=== PATIENT | female | born 1980 ===

== ENCOUNTER 2017-02-25 17:40 | Inpatient (IN) | payer MEDICAID ==
[2017-02-25 17:40] VITALS: BMI 27.4
[2017-02-25 18:48] LABS: BASO # 0.1 K/uL (0.0-0.2); BASO % 0.8 % (0.0-2.0); EOS # 0.1 K/uL (0.0-0.7); EOS % 1.1 % (0.0-4.0); HEMATOCRIT 37.4 % (34.0-47.0); LYMPH # 3.2 K/uL (1.0-4.3); LYMPH % 30.1 % (20.0-40.0); MEAN CELL VOLUME 92.6 fL (81.0-99.0); MEAN CORPUSCULAR HEMOGLOBIN 31.5 pg (27.0-31.0); MEAN PLATELET VOLUME 8.6 fL (7.2-11.7); MONO # 0.7 K/uL (0.0-0.8); MONO % 6.7 % (0.0-10.0); RED CELL DISTRIBUTION WIDTH 12.7 % (11.5-14.5); WHITE BLOOD COUNT 10.7 K/uL (4.8-10.8)
[2017-02-25 19:00] LABS: CHLORIDE 99 mmol/L (98-107); POTASSIUM 3.6 mmol/L (3.6-5.2); SODIUM 137 mmol/L (132-148)
[2017-02-25 19:02] LABS: ALB/GLOB RATIO 1.2 (1.0-2.1); ALKALINE PHOSPHATASE 79 U/L (38-126); AST/SGOT 27 U/L (14-36); BILIRUBIN,TOTAL 0.5 mg/dL (0.2-1.3); CARBON DIOXIDE 24 mmol/L (22-30); GFR AFRICAN-AMERICAN > 60; TOTAL PROTEIN 7.9 g/dL (6.3-8.3)
[2017-02-25 19:03] LABS: ALT/SGPT 33 U/L (9-52); BLOOD UREA NITROGEN 15 mg/dL (7-17); GLUCOSE,RANDOM 94 mg/dL (65-105); MAGNESIUM 1.9 mg/dL (1.6-2.3)
--- NOTE | 2017-02-25 20:01 | CT ---
EXAM: CT Head Without Intravenous Contrast CLINICAL HISTORY: 36 years old, female; Pain; Headache; Headache not specified TECHNIQUE: Axial computed tomography images of the head/brain without intravenous contrast. This CT exam was performed using one or more of the following dose reduction techniques: automated exposure control, adjustment of the mA and/or kV according to patient size, and/or use of iterative reconstruction technique. EXAM DATE/TIME: 02/25/2017 6:39 PM COMPARISON: No relevant prior studies available. FINDINGS: BRAIN: No acute hemorrhage seen within the brain. No acute extraaxial fluid collections visualized. No evidence of significant intracranial mass effect. Normal ibrahim-white matter differentiation. VENTRICLES: No evidence of significant hydrocephalus. BONES/JOINTS: No acute fractures or other acute bony abnormality noted. SOFT TISSUES: No acute abnormality of the visualized soft tissues is seen. SINUSES: Visualized paranasal sinuses appear clear. MASTOID AIR CELLS: Mastoid air cells appear clear. IMPRESSION: - No acute findings seen within the brain. - See above for remaining findings.
--- NOTE | 2017-02-25 21:37 | C.PDOC ---
Time Seen by Provider: 02/25/17 18:30 Chief Complaint (Nursing): Syncope History Per: Patient Onset/Duration Of Symptoms: Days (about 1 month) Current Symptoms Are (Timing): Still Present Number Of Syncopal Episodes: 1 (today) Associated Symptoms Preceding Syncopal Episode: Lightheadedness Seizure Or Post-ictal Symptoms: None Fall Associated With With Symptoms: No Severity: Moderate Additional History Per: Prior Records - Symptoms Of CVA Recent Head Trauma: No Past Medical History Reviewed: Historical Data, Nursing Documentation, Vital Signs Vital Signs: Last Vital Signs Temp 97.4 F L 02/25/17 17:43 Pulse 84 02/25/17 17:43 Resp 20 02/25/17 17:43 BP 154/98 H 02/25/17 17:43 Pulse Ox 100 02/25/17 17:43 - Medical History PMH: Depression, Gastritis Surgical History: Appendectomy, Endoscopy Other Surgeries: Hysterectomy - [facility] Procedures OTHER AND UNSPECIFIED TOTAL ABDOMINAL HYSTERECTOMY (08/06/14) REMOV TUBE & ECTOP PREG (11/17/13) VACCINATION NEC (08/06/14) Family History: States: Unknown Family Hx - Social History Hx Tobacco Use: No Hx Alcohol Use: No Hx Substance Use: No - Immunization History Hx Tetanus Toxoid Vaccination: Yes Hx Influenza Vaccination: Yes Hx Pneumococcal Vaccination: Yes Review Of Systems Except As Marked, All Systems Reviewed And Found Negative. Constitutional: Negative for: Fever, Weakness Cardiovascular: Positive for: Chest Pain (exertional?), Light Headedness Respiratory: Negative for: Hemoptysis Gastrointestinal: Negative for: Vomiting, Abdominal Pain Musculoskeletal: Negative for: Neck Pain, Back Pain Skin: Negative for: Rash Neurological: Positive for: Headache, Dizziness. Negative for: Weakness, Numbness, Seizures, Altered Mental Status Physical Exam - Physical Exam Appears: Non-toxic, No Acute Distress Skin: Normal Color, Warm, Dry, No Rash Head: Atraumatic, Normacephalic Eye(s): bilateral: PERRL, EOMI Neck: Normal ROM, Supple Cardiovascular: Rhythm Regular Respiratory: Normal Breath Sounds, No Accessory Muscle Use Gastrointestinal/Abdominal: Soft, No Tenderness Back: No CVA Tenderness Extremity: Normal ROM, No Pedal Edema Neurological/Psych: Oriented x3, Normal Speech, Normal Cognition, Normal Motor, Normal Sensation ED Course And Treatment - Laboratory Results Result Diagrams: 02/25/17 18:43 04/01/17 18:43 Lab Interpretation: No Acute Changes ECG: Interpreted By Me, Viewed By Me ECG Rhythm: Sinus Rhythm ECG Interpretation: No Acute Changes Rate From EC O2 Sat by Pulse Oximetry: 100 Pulse Ox Interpretation: Normal - Radiology CXR: Interpreted by Me, Viewed By Me CXR Interpretation: Yes: Cardiomegaly (?) - CT Scan/US CT head Other Rad Studies (CT/US): Read By Radiologist, Radiology Report Reviewed CT/US Interpretation: IMPRESSION: - No acute findings seen within the brain. - See above for remaining findings. Disposition Discussed With : Kenya Hernandez (Covering) Comment: He accepted pt on his service and gave admitting orders to the nurse. Doctor Will See Patient In The: Hospital Counseled Patient/Family Regarding: Studies Performed, Diagnosis - Disposition Disposition: HOSPITALIZED Disposition Time: 21:40 Condition: STABLE - Clinical Impression Clinical Impression: Episode of syncope, Dizziness
--- NOTE | 2017-02-26 08:34 | RAD ---
PROCEDURE: CHEST RADIOGRAPH, 1 VIEW HISTORY: CP COMPARISON: Comparison is made to the previous study dated 12/20/2016 FINDINGS: LUNGS: No evidence of new infiltrate or consolidation in the lungs. PLEURA: No pneumothorax or pleural fluid seen. CARDIOVASCULAR: Normal. OSSEOUS STRUCTURES: No significant abnormalities. VISUALIZED UPPER ABDOMEN: Normal. OTHER FINDINGS: None. IMPRESSION: No active disease.
--- NOTE | 2017-02-26 10:44 | CP.PCM.CON ---
History of Present Illness - History of Present Illness History of Present Illness: I was asked to see patient by Dr. Hernandez. Patient is a 36 year old female with no signfiicant PMH who presents with dizziness, near syncope and palpitation. Patient has noted progressive dyspnea on exertion. She states symptoms began one month ago, and are notable for a sensation of heart racing. The patient was at work yesterday when she wsa noted to have weakness, palpitations, and syncope. The patient has dyspnea with walking a flight of stairs or one block. Review of Systems - Constitutional Constitutional: absent: As Per HPI, Anorexia, Chills, Daytime Sleepiness, Excessive Sweating, Fatigue, Fever, Frequent Falls, Headache, Increased Appetite , Lethargy, Malaise, Night Sweats, Snoring, Sleep Apnea, Weight Gain, Weight Loss, Weakness, Other - EENT Eyes: absent: As Per HPI, Blind Spots, Blurred Vision, Change in Vision, Decreased Night Vision, Diplopia, Discharge, Dry Eye, Exophthalmos, Floaters, Irritation, Itchy Eyes, Loss of Peripheral Vision, Pain, Photophobia, Requires Corrective Lenses, Sees Flashes, Spots in Vision, Tunnel Vision, Other Visual Disturbances, Loss of Vision, Other Ears: absent: As Per HPI, Decreased Hearing, Ear Discharge, Ear Pain, Tinnitus, Abnormal Hearing, Disequilibrium, Dizziness, Other Nose/Mouth/Throat: absent: As Per HPI, Epistaxis, Nasal Congestion, Nasal Discharge, Nasal Obstruction, Nasal Trauma, Nose Pain, Post Nasal Drip, Sinus Pain, Sinus Pressure, Bleeding Gums, Change in Voice, Dental Pain, Dry Mouth, Dysphagia, Halitosis, Hoarsness, Lip Swelling, Mouth Lesions, Mouth Pain, Odynophagia, Sore Throat, Throat Swelling, Tongue Swelling, Facial Pain, Neck Pain, Neck Mass, Other - Cardiovascular Cardiovascular: Dyspnea, Palpitations - Respiratory Respiratory: absent: As Per HPI, Cough, Dyspnea, Hemoptysis, Dyspnea on Exertion , Wheezing, Snoring, Stridor, Pain on Inspiration, Chest Congestion, Excessive Mucous Production, Change in Mucous Color, Pain with Coughing, Other - Gastrointestinal Gastrointestinal: absent: As Per HPI, Abdominal Pain, Belching, Bloating, Change in Bowel Habits, Change in Stool Character, Coffee Ground Emesis, Constipation, Cramping, Diarrhea, Dyspepsia, Dysphagia, Early Satiety, Excessive Flatus, Fecal Incontinence, Heartburn, Hematemesis, Hematochezia, Loose Stools, Melena, Nausea, Odynophagia, Temesmus, Vomiting, Other - Genitourinary Genitourinary: absent: As Per HPI, Change in Urinary Stream, Difficulty Urinating, Dysuria, Flank Pain, Hematuria, Pyuria, Nocturia, Urinary Incontinence, Urinary Frequency, Urinary Hesitance, Urinary Urgency, Voiding Freq/Small Amts, Freq UTI, Hx Renal/Bladder Calculi, Hx /Renal Surgery, Bladder Distension, Other - Musculoskeletal Musculoskeletal: absent: As Per HPI, Abnormal Gait, Arthralgias, Atrophy, Back Pain, Deformity, Joint Swelling, Limited Range of Motion, Loss of Height, Muscle Cramps, Muscle Weakness, Myalgias, Neck Pain, Numbness, Radiating Pain into Limb, Stiffness, Tingling, Other - Integumentary Integumentary: absent: As Per HPI, Acne, Alopecia, Bleeding Lesions, Change in Hair, Change in Nails, Change in Pigmentation, Changing Lesions, Dry Skin, Erythema, Furuncle, Hirsutism, Lesions, New Lesions, Non-Healing Lesions, Photosensitivity, Pruritus, Rash, Skin Pain, Skin Ulcer, Sores, Striae, Swelling , Unusual Bruising, Wounds, Jaundice, Other - Neurological Neurological: absent: As Per HPI, Abnormal Gait, Abnormal Hearing, Abnormal Movements, Abnormal Speech, Behavioral Changes, Burning Sensations, Confusion, Convulsions, Disequilibrium, Dizziness, Numbness, Focal Weakness, Frequent Falls , Headaches, Lack of Coordination, Loss of Vision, Memory Loss, Paresthesias, Radicular Pain, Restless Legs, Sensory Deficit, Syncope, Tingling, Tremor, Vertigo, Weakness, Other Visual Disturbances, Other - Psychiatric Psychiatric: absent: As Per HPI, Abnormal Sleep Pattern, Anhedonia, Anxiety, Auditory Hallucinations, Behavioral Changes, Change in Appetite, Change in Libido, Confusion, Depression, Difficulty Concentrating, Hallucinations, Homicidal Ideation, Hopelessness, Irritability, Memory Loss, Mood Swings, Panic Attacks, Paranoia, Suicidal Ideation, Visual Hallucinations, Tactile Hallucinations, Other - Endocrine Endocrine: absent: As Per HPI, Change in Body Appearance, Change in Libido, Cold Intolorance, Deepening of Voice, Excessive Sweating, Fatigue, Flushing, Heat Intolorance, Increase in Ring/Shoe/Hat Size, Palpitations, Polydipsia, Polyphagia, Polyuria, Other - Hematologic/Lymphatic Hematologic: absent: As Per HPI, Easy Bleeding, Easy Bruising, Lymphadenopathy, Other Past Patient History - Infectious Disease Hx of Infectious Diseases: None - Past Medical History & Family History Past Medical History?: No - Past Social History Smoking Status: Never Smoked - CARDIAC Hx Cardiac Disorders: Yes Hx Angina: Yes - PULMONARY Hx Respiratory Disorders: Yes Hx Respiratory Tract Infection: Yes - NEUROLOGICAL Hx Neurological Disorder: No - HEENT Hx HEENT Problems: No - RENAL Hx Chronic Kidney Disease: No - ENDOCRINE/METABOLIC Hx Endocrine Disorders: No - HEMATOLOGICAL/ONCOLOGICAL Hx Blood Disorders: No - INTEGUMENTARY Hx Dermatological Problems: No - MUSCULOSKELETAL/RHEUMATOLOGICAL Hx Musculoskeletal Disorders: No Hx Falls: No - GASTROINTESTINAL Hx Gastrointestinal Disorders: Yes Hx Gastritis: Yes - GENITOURINARY/GYNECOLOGICAL Hx Genitourinary Disorders: Yes Other/Comment: HX ECTOPIC PREG 2YRS AGO - PSYCHIATRIC Hx Psychophysiologic Disorder: Yes Hx Depression: Yes Hx Substance Use: No - SURGICAL HISTORY Hx Surgeries: Yes Hx Appendectomy: Yes - ANESTHESIA Hx Anesthesia: Yes Hx Anesthesia Reactions: No Hx Malignant Hyperthermia: No Meds Allergies/Adverse Reactions: Allergies Allergy/AdvReac Type Severity Reaction Status Date / Time No Known Allergies Allergy Verified 12/20/16 07:58 Physical Exam - Constitutional Appears: Non-toxic - Head Exam Head Exam: NORMAL INSPECTION - Eye Exam Eye Exam: Normal appearance - ENT Exam ENT Exam: Mucous Membranes Moist - Neck Exam Neck exam: Positive for: Full Rom - Respiratory Exam Respiratory Exam: NORMAL BREATHING PATTERN - Cardiovascular Exam Cardiovascular Exam: REGULAR RHYTHM - GI/Abdominal Exam GI & Abdominal Exam: Normal Bowel Sounds - Rectal Exam Rectal Exam: Deferred - Extremities Exam Extremities exam: Negative for: pedal edema - Back Exam Back exam: NORMAL INSPECTION - Neurological Exam Neurological exam: Alert, Oriented x3 - Psychiatric Exam Psychiatric exam: Normal Affect - Skin Skin Exam: Normal Color Results - Vital Signs Recent Vital Signs: Last Vital Signs Temp 98 F 02/26/17 08:17 Pulse 62 02/26/17 08:17 Resp 20 02/26/17 08:17 BP 102/66 02/26/17 08:17 Pulse Ox 98 02/26/17 08:17 - Labs Result Diagrams: 02/25/17 18:43 02/25/17 18:43 Labs: Laboratory Results - last 24 hr 02/26/17 03:56 Total Creatine Kinase 69 CK-MB (Mass) 0.58 Troponin I, Quant < 0.0120 - EKG Data EKG Interpreted by: Myself EKG shows normal: Sinus rhythm Assessment & Plan (1) Episode of syncope Assessment and Plan: uncleasr etiology. dicussed the possibility of arrhythmia as a cause of her symptoms. Will continue telemetry Status: Acute (2) Chest pain Assessment and Plan: unclear etiology. will schedule treadmill stress test. Status: Acute (3) Dyspnea Assessment and Plan: as above Status: Acute
[2017-02-26] MEDS ORDERED: Aspirin 325 mg EC Tablets PO STA (12:56)
--- NOTE | 2017-02-27 07:20 | CP.PCM.PN ---
Subjective - Date & Time of Evaluation Date of Evaluation: 02/27/17 Time of Evaluation: 09:40 - Subjective Subjective: Dr. Hernandez service: Patient seen in room with her friend present. She reports fainting. She says she becomes very dizzy before fainting. Objective - Vital Signs/Intake and Output Vital Signs (last 24 hours): Temp Pulse Resp BP Pulse Ox 98.3 F 72 20 108/66 98 02/26/17 23:45 02/27/17 00:20 02/26/17 23:45 02/26/17 23:45 02/26/17 23:45 - Medications Medications: Current Medications Ibuprofen (Motrin Tab) 400 mg PO Q6 PRN PRN Reason: Pain, moderate (4-7) - Constitutional Appears: Non-toxic, No Acute Distress - Head Exam Head Exam: NORMAL INSPECTION - Eye Exam Eye Exam: Normal appearance Pupil Exam: NORMAL ACCOMODATION - ENT Exam ENT Exam: Normal Exam - Respiratory Exam Respiratory Exam: Clear to Ausculation Bilateral. absent: Rhonchi, Wheezes - Cardiovascular Exam Cardiovascular Exam: REGULAR RHYTHM, RRR, +S1, +S2. absent: Gallop, Rubs - GI/Abdominal Exam GI & Abdominal Exam: Soft, Normal Bowel Sounds. absent: Tenderness - Extremities Exam Extremities Exam: Normal Inspection. absent: Pedal Edema - Back Exam Back Exam: NORMAL INSPECTION - Neurological Exam Neurological Exam: Alert - Psychiatric Exam Psychiatric exam: Normal Affect, Normal Mood Assessment and Plan (1) Episode of syncope Assessment & Plan: negative cardiac workup, negative stress test, discharged home. Status: Acute
--- NOTE | 2017-02-27 07:59 | CP.PCM.PN ---
Subjective - Date & Time of Evaluation Date of Evaluation: 02/27/17 Time of Evaluation: 07:50 - Subjective Subjective: regular stress test performed. no ischemia. normal heart rate response. patient is stable for dishcarge. Objective - Vital Signs/Intake and Output Vital Signs (last 24 hours): Temp Pulse Resp BP Pulse Ox 98.3 F 72 20 108/66 98 02/26/17 23:45 02/27/17 00:20 02/26/17 23:45 02/26/17 23:45 02/26/17 23:45 - Medications Medications: Current Medications Ibuprofen (Motrin Tab) 400 mg PO Q6 PRN PRN Reason: Pain, moderate (4-7) Assessment and Plan (1) Episode of syncope Status: Acute (2) Chest pain Status: Acute (3) Dyspnea Status: Acute
[2017-02-27 09:40] VITALS: BP 118/86; PULSE 91; RESP 17; TEMP 98.4; O2SAT 95
--- NOTE | 2017-02-28 07:21 | CARD ---
APPROVED REPORT EXAM: Two-dimensional and M-mode echocardiogram with Doppler and color Doppler. Other Information Quality : GoodRhythm : NSR INDICATION Dizziness and Vertigo Dyspnea Chest Pain Syncope M-Mode DIMENSIONS RVDd2.19 (2.1-3.2cm)Left Atrium (MM)2.92 (2.5-4.0cm) IVSd0.87 (0.7-1.1cm)Aortic Root2.53 (2.2-3.7cm) LVDd5.24 (4.0-5.6cm)Aortic Cusp Exc.1.80 (1.5-2.0cm) PWd0.90 (0.7-1.1cm)FS (%) 31 % LVDs3.61 (2.0-3.8cm)LVEF (%)58 (>50%) Aortic Valve AoV Peak Lyxfbuel972.3cm/Harsh Peak GR.10mmHg Mitral Valve MV E Rnwitgkw93.6cm/sMV A Krtsenns32.3cm/sE/A ratio1.4 TDI E/Lateral E'0.0E/Medial E'0.0 Tricuspid Valve TR Peak Mzrhwpoe987mu/sTR Peak Gr.27weXwPBRI56jbCr LEFT VENTRICLE The left ventricle is normal size. There is normal left ventricular wall thickness. Left ventricle systolic function is normal. The Ejection Fraction is 55-60%. There is normal LV segmental wall motion. The left ventricular diastolic function is normal. No left ventricle thrombus noted on this study. RIGHT VENTRICLE The right ventricle is normal size. The right ventricular systolic function is normal. ATRIA The left atrium size is normal. The right atrium size is normal. AORTIC VALVE The aortic valve is normal in structure. No aortic regurgitation is present. There is no aortic valvular stenosis. There is no aortic valvular vegetation. MITRAL VALVE The mitral valve is normal in structure. There is no evidence of mitral valve prolapse. There is no mitral valve stenosis. Mitral regurgitation is trace to mild. TRICUSPID VALVE The tricuspid valve is normal in structure. There is trace to mild tricuspid regurgitation. Right ventricular systolic pressure is estimated at less than 30 mmHg. There is no pulmonary hypertension. There is no tricuspid valve prolapse or vegetation. There is no tricuspid valve stenosis. PULMONIC VALVE The pulmonic valve is not well visualized. There is no pulmonic valvular regurgitation. There is no pulmonic valvular stenosis. GREAT VESSELS The aortic root is normal in size. The IVC is normal in size and collapses >50% with inspiration. PERICARDIAL EFFUSION There is no pericardial effusion. There is no pleural effusion. <Conclusion> The left ventricle is normal size. Left ventricle systolic function is normal. The Ejection Fraction is 55-60%. The left ventricular diastolic function is normal. The right ventricle is normal size. The right ventricular systolic function is normal. The left and right atrium size is normal. Mitral regurgitation is trace to mild. There is trace to mild tricuspid regurgitation.
--- NOTE | 2017-02-28 18:57 | CARD ---
APPROVED REPORT EKG Measurement Heart [id number] [place] [id number] <Conclusion> Normal sinus rhythm Nonspecific T wave abnormality Abnormal ECG
--- NOTE | 2017-03-02 13:12 | CARD ---
APPROVED REPORT EKG Measurement Heart [id number] [place] 148P60 [id number] <Conclusion> Normal sinus rhythm Normal ECG
--- NOTE | 2017-03-20 09:36 | HP ---
The patient admitted to the hospital with chief complaint of ____, fatigue, tiredness. Came to the E R, advised admission. PHYSICAL EXAMINATION: GENERAL: The patient is awake, alert, oriented. VITAL SIGNS: Temperature 98, pulse 90. HEENT: Within normal limits. NECK: Supple. CHEST: Symmetrical. HEART: Regular. ABDOMEN: Soft. EXTREMITIES: No edema. ASSESSMENT AND PLAN: The patient on bedrest, supportive care. continue treatment. Kenya Burgess MD cc: [id number] TT: 03/19/2017 20:31:02 03/20/2017 08:35:33
--- NOTE | 2017-03-27 09:33 | CARD ---
APPROVED REPORT Protocol: MARILU Test Type: TREADMILL TEST Target HR: 183 bpm Resting ECG: normal Resting Heart Rate: 71 bpm Resting Blood Pressure: 128/80mmHg submaximum (85%): 156 bpm TEST SUMMARY [id number]:01..1.084/.0. PRETESTWARM-UP07:[id number]/80.0. EXERCISESTAGE 103:[id number]/80.0. EXERCISESTAGE 203:[id number]/80.0. EXERCISESTAGE 300:[id number]/80.0. [id number]:[id number]/80.0. POST EXERCISE Reason for Termination: Target heart rate achieved Target HR: NoMax HR: 151 bpm83% of Maximum Predicted HR: 183 bpm Exercise duration: 3 Stage06:28 min:secExercise capacity: 8.3METs Max Blood Pressure: 142/80mmHg Blood Pressure response to exercise: normal resting BP - appropriate response Heart Rate response to exercise: appropriate Chest Pain: NononeAngina index: 0 Arrhythmia: Nonone ST Change: NononeDeviation: 0 mm INTERPRETATION Stress EKG Conclusion: NORMAL EKG STRESS TEST
== END 2017-02-27 13:30 | disposition home or self-care (01) | DRG 142 ==
LOC: C.ER 17:40 → C.9E 21:33 → C.6T 22:22
PROVIDERS: ADMIT Internal Medicine Pulmonary Disease; ATTEND Internal Medicine Pulmonary Disease
DX: R55 Syncope and collapse (principal); F32.9 Major depressive disorder, single episode, unspecified; R00.2 Palpitations; R06.00 Dyspnea, unspecified; R07.9 Chest pain, unspecified

== ENCOUNTER 2017-07-01 13:56 | Emergency (ER) | payer MEDICAID ==
[2017-07-01 13:56] VITALS: BMI 27.4
[2017-07-01 14:10] VITALS: BP 100/62; PULSE 86; RESP 20; TEMP 97.7; O2SAT 100
--- NOTE | 2017-07-01 14:54 | C.PDOC ---
History Of Present Illness Sirena Chávez, a 36 year old female, presents to the ED for evaluation of an abdominoplasty surgical wound. Patient was seen by Dr. Henley for dehiscence. She was on 1 week of keflex and 1 week of bactrim. Almost daily wound changes from wet to dry. PMD: Nathan Patiño Time Seen by Provider: 07/01/17 14:39 Chief Complaint (Nursing): Abdominal Pain History Per: Patient History/Exam Limitations: no limitations Current Symptoms Are (Timing): Still Present Past Medical History Reviewed: Historical Data, Nursing Documentation, Vital Signs Vital Signs: Last Vital Signs Temp 97.7 F 07/01/17 14:08 Pulse 86 07/01/17 14:08 Resp 20 07/01/17 14:08 BP 100/62 07/01/17 14:08 Pulse Ox 100 07/01/17 15:40 - Medical History PMH: Depression, Gastritis Denies: Chronic Kidney Disease Surgical History: Appendectomy, Endoscopy - [facility] Procedures OTHER AND UNSPECIFIED TOTAL ABDOMINAL HYSTERECTOMY (08/06/14) REMOV TUBE & ECTOP PREG (11/17/13) VACCINATION NEC (08/06/14) Family History: States: Unknown Family Hx - Social History Hx Tobacco Use: No Hx Alcohol Use: No Hx Substance Use: No - Immunization History Hx Tetanus Toxoid Vaccination: Yes Hx Influenza Vaccination: Yes (2015) Hx Pneumococcal Vaccination: Yes (2015) Review Of Systems Except As Marked, All Systems Reviewed And Found Negative. Gastrointestinal: Positive for: Other (Abdominoplasty wound; Dehiscence.) Physical Exam - Physical Exam Appears: Well, Non-toxic, No Acute Distress Skin: Normal Color, Warm, Dry Head: Atraumatic, Normacephalic, No Tenderness Eye(s): bilateral: Normal Inspection, PERRL, EOMI Nose: Normal Oral Mucosa: Moist Tongue: Normal Appearing Lips: Normal Appearing Teeth: Normal Dentition Gingiva: Normal Appearing Throat: Normal Neck: Normal Cardiovascular: Rhythm Regular Respiratory: Normal Breath Sounds, No Wheezing Gastrointestinal/Abdominal: Normal Exam, Bowel Sounds, Soft, No Tenderness, No Guarding, No Rebound, Other (Feliciano fenostile defect [id number];granulation tissue; no foul smell;No discharge: No fluctuance.) Back: Normal Inspection, No CVA Tenderness Extremity: Normal ROM, No Tenderness, No Deformity, No Swelling Neurological/Psych: Oriented x3, Normal Speech, Normal Cognition ED Course And Treatment O2 Sat by Pulse Oximetry: 100 (RA) Pulse Ox Interpretation: Normal Progress Note: wound unpacked and examined, clean dry, non-foul smelling, no fluctuance. agree with Dr. Henley, already has taken 2 rounds of PO ABX and non-infected nicely healing wound now. Repacked and will f/u with him in office 2 days. Medical Decision Making Medical Decision Making: Initial Impression: healing failed abdominoplasty wound Initial Plan: [address] Henley. Disposition Doctor Will See Patient In The: Office Counseled Patient/Family Regarding: Studies Performed, Diagnosis - Disposition Referrals: Brian Henley [Staff Provider] - Disposition: HOME/ ROUTINE Disposition Time: 15:40 Condition: GOOD Additional Instructions: Kelyl la herida empackada hasta el , cuando visita con Dr. Henley en ramirez oficina. Instructions: Chronic Wound Care (ED) Forms: [employer] (Estonian) Print Language: MONGOLIAN - Clinical Impression Clinical Impression: Visit for wound check - Scribe Statement Caitie Stark All medical record entries made by the Scribe were at my direction and personally dictated by me. I have reviewed the chart and agree that the record accurately reflects my personal performance of the history, physical exam, medical decision making, and the department course for this patient. I have also personally directed, reviewed, and agree with the discharge instructions and disposition.
--- NOTE | 2017-07-01 14:57 | C.PDOC ---
Time Seen by Provider: 07/01/17 14:39 Chief Complaint (Nursing): Abdominal Pain Past Medical History Vital Signs: Last Vital Signs Temp 97.7 F 07/01/17 14:08 Pulse 86 07/01/17 14:08 Resp 20 07/01/17 14:08 BP 100/62 07/01/17 14:08 Pulse Ox 100 07/01/17 14:08 - Medical History PMH: Depression, Gastritis Denies: Chronic Kidney Disease Surgical History: Appendectomy, Endoscopy - [facility] Procedures OTHER AND UNSPECIFIED TOTAL ABDOMINAL HYSTERECTOMY (08/06/14) REMOV TUBE & ECTOP PREG (11/17/13) VACCINATION NEC (08/06/14) Family History: States: Unknown Family Hx - Social History Hx Tobacco Use: No Hx Alcohol Use: No Hx Substance Use: No - Immunization History Hx Tetanus Toxoid Vaccination: Yes Hx Influenza Vaccination: Yes (2015) Hx Pneumococcal Vaccination: Yes (2015) ED Course And Treatment O2 Sat by Pulse Oximetry: 100 Disposition - Disposition Forms: [facility] [employer] (Korean)
== END 2017-07-01 16:05 | disposition home or self-care (01) ==
LOC: C.ER 13:56
DX: Z51.89 Encounter for other specified aftercare (principal)

== ENCOUNTER 2017-08-17 15:46 | Emergency (ER) | payer MEDICAID ==
[2017-08-17 15:47] VITALS: BMI 27.4
[2017-08-17] MEDS ORDERED: Sodium Chloride 0.9% 1,000 ML IV ONE (16:48)
[2017-08-17] MEDS ORDERED: Sodium Chloride 0.9% 1,000 ML ONE (17:02)
[2017-08-17 17:12] LABS: URINE BILIRUBIN NEGATIVE (NEGATIVE); URINE BLOOD NEGATIVE (NEGATIVE); URINE COLOR Straw (YELLOW); URINE GLUCOSE (UA) NORMAL (Normal); URINE KETONE NEGATIVE (NEGATIVE); URINE LEUKOCYTE ESTERASE NEG Leu/uL (Negative); URINE PROTEIN NEGATIVE (NEGATIVE); URINE UROBILINOGEN NORMAL mg/dL (0.2-1.0)
[2017-08-17 17:15] LABS: CHLORIDE 106 mmol/L (98-107)
[2017-08-17 17:16] LABS: POTASSIUM 4.2 mmol/L (3.6-5.2); SODIUM 139 mmol/L (132-148)
[2017-08-17 17:18] LABS: ALB/GLOB RATIO 1.4 (1.0-2.1); ALKALINE PHOSPHATASE 88 U/L (38-126); ALT/SGPT 36 U/L (9-52); AST/SGOT 21 U/L (14-36); BILIRUBIN,TOTAL 0.6 mg/dL (0.2-1.3); BLOOD UREA NITROGEN 13 mg/dL (7-17); CARBON DIOXIDE 19 mmol/L (22-30); GFR AFRICAN-AMERICAN > 60; TOTAL PROTEIN 7.7 g/dL (6.3-8.3)
[2017-08-17 17:19] LABS: BASO # 0.1 K/uL (0.0-0.2); BASO % 0.8 % (0.0-2.0); CALCIUM 8.9 mg/dl (8.6-10.4); EOS # 0.1 K/uL (0.0-0.7); EOS % 1.1 % (0.0-4.0); GLUCOSE,RANDOM 81 mg/dL (65-105); HEMATOCRIT 37.7 % (34.0-47.0); LYMPH # 2.2 K/uL (1.0-4.3); MEAN CELL VOLUME 92.6 fL (81.0-99.0); MEAN CORPUSCULAR HEMOGLOBIN 31.3 pg (27.0-31.0); MEAN CORPUSCULAR HGB CONC 33.7 g/dL (33.0-37.0); MEAN PLATELET VOLUME 8.4 fL (7.2-11.7); MONO # 0.4 K/uL (0.0-0.8); MONO % 5.3 % (0.0-10.0); NRBC % 0.1 % (0.0-2.0); RED CELL DISTRIBUTION WIDTH 13.2 % (11.5-14.5); WHITE BLOOD COUNT 7.9 K/uL (4.8-10.8)
[2017-08-17] MEDS ORDERED: Alum-Mag Hydrox-Simethicone Susp (30 mL) PO STA (17:46)
--- NOTE | 2017-08-17 17:48 | C.PDOC ---
Time Seen by Provider: 08/17/17 16:14 Chief Complaint (Nursing): Abdominal Pain History Per: Patient Onset/Duration Of Symptoms: Days (few), Waxing/Waning Current Symptoms Are (Timing): Still Present Severity: Moderate Location Of Pain/Discomfort: Epigastric Quality Of Discomfort: Unable To Describe, "Pain" Associated Symptoms: Nausea, Vomiting (x1) Exacerbating Factors: Food Last Bowel Movement: Today Additional History Per: Prior Records Abnormal Vaginal Bleeding: No Past Medical History Reviewed: Historical Data, Nursing Documentation, Vital Signs Vital Signs: Last Vital Signs Temp 98.4 F 08/17/17 18:31 Pulse 79 08/17/17 18:31 Resp 18 08/17/17 18:31 BP 110/74 08/17/17 18:31 Pulse Ox 100 08/17/17 18:31 - Medical History PMH: Depression, Gastritis Surgical History: Appendectomy, Endoscopy Other Surgeries: Abdominoplasty - [facility] Procedures OTHER AND UNSPECIFIED TOTAL ABDOMINAL HYSTERECTOMY (08/06/14) REMOV TUBE & ECTOP PREG (11/17/13) VACCINATION NEC (08/06/14) Family History: States: Unknown Family Hx - Social History Hx Tobacco Use: No Hx Alcohol Use: No Hx Substance Use: No - Immunization History Hx Tetanus Toxoid Vaccination: Yes Hx Influenza Vaccination: No Hx Pneumococcal Vaccination: Yes (2015) Review Of Systems Except As Marked, All Systems Reviewed And Found Negative. Constitutional: Negative for: Fever Cardiovascular: Negative for: Chest Pain Respiratory: Negative for: Shortness of Breath Gastrointestinal: Positive for: Abdominal Pain. Negative for: Diarrhea, Melena , Hematochezia, Hematemesis Genitourinary: Negative for: Dysuria Musculoskeletal: Negative for: Neck Pain Skin: Negative for: Rash Neurological: Negative for: Weakness, Numbness Physical Exam - Physical Exam Appears: Non-toxic, No Acute Distress Skin: Normal Color, Warm, Dry, No Rash Head: Atraumatic, Normacephalic Eye(s): bilateral: Normal Inspection, PERRL, EOMI Neck: Normal ROM, Supple Cardiovascular: Rhythm Regular Respiratory: Normal Breath Sounds, No Accessory Muscle Use Gastrointestinal/Abdominal: Soft, Tenderness (mild epigastric), No Guarding, No Rebound Extremity: Normal ROM Neurological/Psych: Oriented x3, Normal Motor, Normal Sensation ED Course And Treatment - Laboratory Results Result Diagrams: 08/17/17 17:01 08/17/17 17:01 Lab Interpretation: No Acute Changes Urine POC: Negative O2 Sat by Pulse Oximetry: 98 Pulse Ox Interpretation: Normal Progress Note: Pt feels much better and wants to go home. Reassessment Condition: Improved Progress - Interventions Interventions:: Observation, Intravenous fluid - Medications Administered Intravenous: Antiemetic, H-2 lowell - Data Reviewed Data Reviewed: Lab, Old records - Patient Status Patient status: Mostly improved - Continuity of Care Discussed patient case with:: Patient, ED Nurse - Patient Plan Patient Plan: Discharge, F/U with PCP, Continue present meds Disposition Counseled Patient/Family Regarding: Studies Performed, Diagnosis, Need For Followup, Rx Given - Disposition Disposition: HOME/ ROUTINE Disposition Time: 18:38 Condition: IMPROVED Additional Instructions: Follow up with your doctor for further evaluation and treatment. Return to the ER if you develop fever, vomiting, worsening of symptoms or if you have any other concerns. Prescriptions: Metoclopramide [Reglan] 1 tab PO TID PRN #15 tab PRN Reason: Nausea/Vomiting Pantoprazole Sodium [Protonix] 40 mg PO DAILY #14 ect Instructions: Gastritis (ED) Forms: [employer] (Maori) Print Language: WOLOF - Clinical Impression Clinical Impression: Epigastric abdominal pain
[2017-08-17 18:32] VITALS: BP 110/74; PULSE 79; RESP 18; TEMP 98.4
[2017-08-17 18:39] VITALS: O2SAT 98
[2017-08-17] MEDS ORDERED: Alum-Mag Hydrox-Simethicone Susp (30 mL) ONE (18:44)
== END 2017-08-17 19:00 | disposition home or self-care (01) ==
LOC: C.ER 15:46
DX: R10.13 Epigastric pain (principal)
CPT/HCPCS: 80053; 81001; 83690; 84703; 85025; 96361; 96374; 96375; 99285; J2765; J7040

== ENCOUNTER 2018-03-21 21:38 | Emergency (ER) | payer MEDICAID ==
[2018-03-21 21:38] VITALS: BMI 27.4
[2018-03-21 21:54] VITALS: BP 128/81; PULSE 72; RESP 20; TEMP 98; O2SAT 100
[2018-03-21] MEDS ORDERED: Albuterol 0.083% Inhal Sol (2.5 mg/3 mL) UD ONE ×2 (22:32→22:39)
[2018-03-21] MEDS ORDERED: Promethazine/Cod 6.25mg-10mg/5ml Syr UD PO STA (22:34)
[2018-03-21] MEDS: Albuterol 0.083% Inhal Sol (2.5 mg/3 mL) UD INH SCH ×2 (22:39→23:01)
[2018-03-21] MEDS ORDERED: Promethazine/Cod 6.25mg-10mg/5ml Syr UD ONE (22:40)
--- NOTE | 2018-03-21 23:29 | C.PDOC ---
History Of Present Illness 37 year old female presents to the ER with a complaint of cough, chest congestion, and chest tightness intermittently for the past 3 weeks. Patient states she has been using her inhaler with no relief. Patient notes she also has thick sputum and feels increasingly dyspneic when laying down. Denies fever , chills, or chest pain. Time Seen by Provider: 03/21/18 22:16 Chief Complaint (Nursing): Cough, Cold, Congestion History Per: Patient History/Exam Limitations: no limitations Onset/Duration Of Symptoms: Days, Intermittent Episodes Current Symptoms Are (Timing): Still Present Location Of Pain: None Sick Contacts (Context): None Associated Symptoms: Cough, Other (Chest congestion, chest tightness). denies: Fever, Chills Ear Symptoms: Bilateral: None Recent travel outside of the [place]: No Past Medical History Reviewed: Historical Data, Nursing Documentation, Vital Signs Vital Signs: Last Vital Signs Temp 98 F 03/21/18 21:51 Pulse 72 03/21/18 21:51 Resp 20 03/21/18 21:51 BP 128/81 03/21/18 21:51 Pulse Ox 100 03/22/18 00:52 - Medical History PMH: Depression, Gastritis Denies: Chronic Kidney Disease Surgical History: Appendectomy, Endoscopy - [facility] Procedures OTHER AND UNSPECIFIED TOTAL ABDOMINAL HYSTERECTOMY (08/06/14) REMOV TUBE & ECTOP PREG (11/17/13) VACCINATION NEC (08/06/14) Family History: States: Unknown Family Hx - Social History Hx Tobacco Use: No Hx Alcohol Use: No Hx Substance Use: No - Immunization History Hx Tetanus Toxoid Vaccination: Yes Hx Influenza Vaccination: No Hx Pneumococcal Vaccination: Yes (2015) Review Of Systems Constitutional: Negative for: Fever, Chills Cardiovascular: Negative for: Chest Pain Respiratory: Positive for: Cough, Sputum, Other (Chest congestion, chest tightness) Physical Exam - Physical Exam Appears: Non-toxic Skin: Normal Color, Warm, Dry Head: Atraumatic, Normacephalic Eye(s): bilateral: Normal Inspection Oral Mucosa: Moist Throat: Normal, No Erythema, No Exudate Neck: Supple Chest: Symmetrical, No Tenderness Cardiovascular: Rhythm Regular Respiratory: Decreased Breath Sounds, No Accessory Muscle Use, No Rales, Rhonchi , No Stridor, Wheezing (Expiratory) Gastrointestinal/Abdominal: Normal Exam Neurological/Psych: Oriented x3, Normal Speech ED Course And Treatment O2 Sat by Pulse Oximetry: 100 (room air) Pulse Ox Interpretation: Normal Progress Note: CXR ordered, results were negative. Motrin, prednisone, albuterol nebulizer, and promethazine with codeine administered. On reevaluation , patient is resting comfortably in the ER in no acute distress, with clear breath sounds, vitals are stable; will discharge home with instructions to follow up with PMD or return if symptoms worsen. Disposition Counseled Patient/Family Regarding: Diagnosis, Need For Followup, Rx Given - Disposition Disposition: HOME/ ROUTINE Disposition Time: 23:29 Condition: STABLE Additional Instructions: Increase fluids Take all meds as directed Follow up with PMD Return to ER if worse Prescriptions: Benzonatate [Tessalon Perles] 100 mg PO TID #20 sgl Cetirizine HCl [Zyrtec] 10 mg PO DAILY #20 capsule Ibuprofen [Motrin] 600 mg PO Q6H #20 tab predniSONE [Prednisone] 40 mg PO DAILY #8 tab Instructions: Upper Respiratory Infection (ED) Forms: [employer] (Danish) Print Language: MAURITIAN - Clinical Impression Clinical Impression: Upper respiratory infection - 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 - Scribe Statement The provider has reviewed the documentation as recorded by the Scribchelita Biswas All medical record entries made by the Jamaalibe were at my direction and personally dictated by me. I have reviewed the chart and agree that the record accurately reflects my personal performance of the history, physical exam, medical decision making, and the department course for this patient. I have also personally directed, reviewed, and agree with the discharge instructions and disposition.
--- NOTE | 2018-03-22 07:45 | RAD ---
Chest x-ray two views History: Cough and fever. Comparison: None available. Findings: No focal infiltrate or effusion. Bibasilar breast and nipple shadows. Right hilar prominence. Upper lobe granulomatous changes. Small nodular density at the right lung apex may represent confluence of shadows with ribs and vessels. Impression: No focal infiltrate or effusion.
== END 2018-03-21 23:52 | disposition home or self-care (01) ==
LOC: C.ER 21:38
DX: J06.9 Acute upper respiratory infection, unspecified (principal)

== ENCOUNTER 2018-03-26 10:02 | Emergency (ER) | payer MEDICAID ==
[2018-03-26 10:02] VITALS: BMI 27.4
[2018-03-26 10:33] VITALS: O2SAT 98
--- NOTE | 2018-03-26 10:51 | C.PDOC ---
History Of Present Illness Patient is a 37 y/o F, with hx of asthma, presenting with 3 week history of cough. She was seen 5 days ago for cough and chest congestion and had cxray that was negative. Reports no change in symptoms. Reports taking tessalon perles. Denies shortness of breath. Time Seen by Provider: 03/26/18 10:50 Chief Complaint (Nursing): Cough, Cold, Congestion Past Medical History Vital Signs: Last Vital Signs Temp 98.3 F 03/26/18 11:06 Pulse 69 03/26/18 11:06 Resp 14 03/26/18 11:06 BP 118/77 03/26/18 11:06 Pulse Ox 98 03/26/18 11:06 - Medical History PMH: Depression, Gastritis Denies: Chronic Kidney Disease Surgical History: Appendectomy, Endoscopy - [facility] Procedures OTHER AND UNSPECIFIED TOTAL ABDOMINAL HYSTERECTOMY (08/06/14) REMOV TUBE & ECTOP PREG (11/17/13) VACCINATION NEC (08/06/14) Family History: States: Unknown Family Hx - Social History Hx Tobacco Use: No Hx Alcohol Use: Yes Hx Substance Use: No - Immunization History Hx Tetanus Toxoid Vaccination: Yes Hx Influenza Vaccination: No Hx Pneumococcal Vaccination: Yes (2016) Review Of Systems Constitutional: Negative for: Fever, Chills Cardiovascular: Negative for: Chest Pain, Palpitations Respiratory: Positive for: Cough. Negative for: Shortness of Breath, SOB with Excertion, Wheezing Gastrointestinal: Negative for: Nausea, Vomiting, Abdominal Pain, Constipation Genitourinary: Negative for: Dysuria Neurological: Negative for: Weakness, Numbness Physical Exam - Physical Exam Appears: Well, Non-toxic, No Acute Distress Skin: Normal Color, Warm, Dry Head: Atraumatic, Normacephalic Eye(s): bilateral: Normal Inspection, PERRL, EOMI Neck: Supple Chest: Symmetrical Cardiovascular: Rhythm Regular Respiratory: Normal Breath Sounds, No Rales, No Rhonchi, No Wheezing Gastrointestinal/Abdominal: Soft, No Tenderness Back: Normal Inspection Extremity: Normal ROM Neurological/Psych: Oriented x3 ED Course And Treatment O2 Sat by Pulse Oximetry: 98 Progress Note: Due to chronic cough x 3 weeks, will dc with zpack. Normal vitals and lungs cta b/l. Recent negative cxray. Patient instructed to follow- up with PMD Disposition - Disposition Disposition: HOME/ ROUTINE Disposition Time: 11:00 Condition: GOOD Additional Instructions: Take full course of antibiotics. Return to ED if condition worsens. Follow-up with PMD within 2 days Prescriptions: Azithromycin 250 mg PO DAILY #4 tablet Instructions: Cough in Adults, Upper Respiratory Infection (ED) Forms: Gen Discharge Inst [place] [employer], [employer] (Lao), Work Excuse Print Language: ANGOLAN - Clinical Impression Clinical Impression: Cough
[2018-03-26 11:07] VITALS: BP 118/77; PULSE 69; RESP 14; TEMP 98.3
== END 2018-03-26 11:08 | disposition home or self-care (01) ==
LOC: C.ER 10:02
DX: R05 Cough (principal)

== ENCOUNTER 2018-07-11 21:21 | Emergency (ER) | payer MEDICAID ==
[2018-07-11 21:21] VITALS: BMI 27.4
[2018-07-11] MEDS ORDERED: Sodium Chloride 0.9% 1,000 ML IV ONE (22:14)
--- NOTE | 2018-07-11 22:14 | C.PDOC ---
History Of Present Illness 37 year old female presents to the ED c/o LUQ abdominal pain that chelsie been intermittent for the past 3 days. Patient is states her pain is dull, aching, cramping rates it a 4/10. Patient associated vomiting and diarrhea with the abdominal pain. Patient denies fever, chills, dysuria, hematuria, recent travel , sick contacts. Time Seen by Provider: 07/11/18 22:14 Chief Complaint (Nursing): Abdominal Pain History Per: Patient History/Exam Limitations: no limitations Onset/Duration Of Symptoms: Days (3) Current Symptoms Are (Timing): Still Present Severity: Mild Pain Scale Rating Of: 4 Location Of Pain/Discomfort: LUQ Radiation Of Pain To:: None Quality Of Discomfort: Dull, Aching, Cramping Associated Symptoms: Vomiting, Diarrhea Recent travel outside of the [place]: No Additional History Per: Patient Abnormal Vaginal Bleeding: No Past Medical History Reviewed: Historical Data, Nursing Documentation, Vital Signs Vital Signs: Last Vital Signs Temp 99 F 07/11/18 21:49 Pulse 75 07/11/18 21:49 Resp 20 07/11/18 21:49 BP 177/79 H 07/11/18 21:49 Pulse Ox 100 07/11/18 23:58 - Medical History PMH: Depression, Gastritis Denies: Chronic Kidney Disease Surgical History: Appendectomy, Endoscopy - [facility] Procedures OTHER AND UNSPECIFIED TOTAL ABDOMINAL HYSTERECTOMY (08/06/14) REMOV TUBE & ECTOP PREG (11/17/13) VACCINATION NEC (08/06/14) Family History: States: Unknown Family Hx - Social History Hx Tobacco Use: No Hx Alcohol Use: No Hx Substance Use: No - Immunization History Hx Tetanus Toxoid Vaccination: No Hx Influenza Vaccination: No Hx Pneumococcal Vaccination: No (2015) Review Of Systems Constitutional: Negative for: Fever, Chills Cardiovascular: Negative for: Chest Pain, Palpitations Respiratory: Negative for: Shortness of Breath Gastrointestinal: Positive for: Vomiting, Abdominal Pain, Diarrhea Genitourinary: Negative for: Dysuria, Hematuria Musculoskeletal: Negative for: Back Pain Skin: Negative for: Rash Neurological: Negative for: Weakness, Numbness Physical Exam - Physical Exam Appears: Non-toxic, No Acute Distress Skin: Warm, Dry Head: Normacephalic Eye(s): bilateral: Normal Inspection Oral Mucosa: Moist Neck: Supple Chest: Symmetrical Cardiovascular: Rhythm Regular Respiratory: No Rales, No Rhonchi, No Wheezing Gastrointestinal/Abdominal: Soft, Tenderness (LUQ), No Guarding, No Rebound Back: Normal Inspection Extremity: No Tenderness, No Swelling Extremity: Bilateral: Atraumatic, Normal Color And Temperature, Normal ROM Neurological/Psych: Oriented x3, Normal Speech Gait: Steady ED Course And Treatment - Laboratory Results Result Diagrams: 07/11/18 22:36 07/11/18 22:36 O2 Sat by Pulse Oximetry: 100 (ON RA) Pulse Ox Interpretation: Normal Progress Note: Plan: - CT abd/pelvis. - Labs. - Morphine 2 mg IVP. - IV fluids. - Zofran 4 mg IVP. 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 I have reviewed the chart and agree that the record accurately reflects my personal performance of the history, physical exam, medical decision making, and the department course for this patient. I have also personally directed, reviewed, and agree with the discharge instructions and disposition.
[2018-07-11] MEDS ORDERED: Sodium Chloride 0.9% 1,000 ML ONE ×2 (22:41)
[2018-07-11 22:48] LABS: BASO # 0.1 K/uL (0.0-0.2); BASO % 0.7 % (0.0-2.0); EOS # 0.1 K/uL (0.0-0.7); EOS % 0.9 % (0.0-4.0); HEMOGLOBIN 12.4 g/dL (11.0-16.0); LYMPH # 1.4 K/uL (1.0-4.3); LYMPH % 14.9 % (20.0-40.0); MEAN CELL VOLUME 94.1 fL (81.0-99.0); MEAN CORPUSCULAR HEMOGLOBIN 33.2 pg (27.0-31.0); MEAN CORPUSCULAR HGB CONC 35.3 g/dL (33.0-37.0); MEAN PLATELET VOLUME 8.4 fL (7.2-11.7); MONO # 0.4 K/uL (0.0-0.8); MONO % 4.9 % (0.0-10.0); NEUT # 7.2 K/uL (1.8-7.0); NEUT % 78.6 % (50.0-75.0); RBC 3.74 Mil/uL (3.80-5.20); RED CELL DISTRIBUTION WIDTH 12.9 % (11.5-14.5); WHITE BLOOD COUNT 9.1 K/uL (4.8-10.8)
[2018-07-11 22:52] LABS: HCG,QUALITATIVE URINE NEGATIVE (NEGATIVE)
[2018-07-11 22:58] LABS: SQUAMOUS EPITHIAL 18 /hpf (0-5); URINE BACTERIA FEW (<OCC); URINE BILIRUBIN NEGATIVE (NEGATIVE); URINE BLOOD NEGATIVE (NEGATIVE); URINE CALCIUM OXALATE CRYSTALS RARE /hpf (<OCC); URINE CLARITY Hazy (Clear); URINE COLOR Yellow (YELLOW); URINE GLUCOSE (UA) NORMAL (Normal); URINE LEUKOCYTE ESTERASE NEG Leu/uL (Negative); URINE PROTEIN NEGATIVE (NEGATIVE); URINE UROBILINOGEN NORMAL mg/dL (0.2-1.0)
[2018-07-11 23:02] LABS: ALB/GLOB RATIO 1.3 (1.0-2.1); ALBUMIN 4.4 g/dL (3.5-5.0); ALT/SGPT 48 U/L (9-52); AST/SGOT 35 U/L (14-36); BLOOD UREA NITROGEN 16 mg/dL (7-17); CALCIUM 9.4 mg/dl (8.6-10.4); GFR AFRICAN-AMERICAN > 60; GFR NON-AFRICAN AMERICAN > 60; LIPASE 88 U/L (23-300); PROTHROMBIN TIME 10.6 SECONDS (9.7-12.2)
[2018-07-11] MEDS ORDERED: Iodixanol 320 MG/ML 100 ML BOTTLE IV ONE (23:41)
[2018-07-12 01:29] VITALS: BP 102/68; PULSE 68; RESP 16; TEMP 98; O2SAT 98
--- NOTE | 2018-07-12 09:40 | CT ---
Date of service: 07/11/2018 PROCEDURE: CT Abdomen and Pelvis without intravenous contrast HISTORY: Abdominal pain COMPARISON: CT abdomen and pelvis dated 02/05/2016 TECHNIQUE: Multiple contiguous axial images were performed through the abdomen and pelvis with the use of intravenous contrast. Subsequently, sagittal coronal reformatted images were. Radiation dose: Total exam DLP = 603 mGy-cm. This CT exam was performed using one or more of the following dose reduction techniques: Automated exposure control, adjustment of the mA and/or kV according to patient size, and/or use of iterative reconstruction technique. FINDINGS: LOWER THORAX: Atelectasis and scarring at the lung bases. 3 millimeter pulmonary nodule at the left lung base. Additional more punctate 1-2 millimeter nodules seen at that level. LIVER: Fatty infiltration of the liver. GALLBLADDER AND BILE DUCTS: Unremarkable. PANCREAS: Unremarkable. No gross lesion or ductal dilatation. SPLEEN: Unremarkable. ADRENALS: Unremarkable. No mass. KIDNEYS AND URETERS: Unremarkable. No hydronephrosis. No solid mass. VASCULATURE: Unremarkable. No aortic aneurysm. BOWEL: Fluid within the small bowel. Fluid/loose stool within the large bowel. Segmental areas of mild mural thickening versus underdistention of the large bowel. Few mildly distended loops of small bowel, likely ileus. APPENDIX: Not well identified. PERITONEUM: Unremarkable. No free fluid. No free air. LYMPH NODES: Unremarkable. No enlarged lymph nodes. BLADDER: Unremarkable. REPRODUCTIVE: 3.5 x 3.0 x 3.8 centimeter hypodense lesion within the left adnexum possibly ovarian. Hysterectomy. BONES: Chronic L5 pars defects. OTHER FINDINGS: None. IMPRESSION: 3.8 centimeter left adnexal cyst. Correlation with pelvic ultrasound may be helpful if clinically indicated. Scattered areas of colonic thickening which may represent an underlying colitis versus underdistention. Clinical correlation. Fluid/stool within the bowel which may represent diarrheal illness. Clinical correlation. 3 millimeter pulmonary nodule at the left lung base. Additional more punctate 1-2 millimeter nodules seen at that level. 3-6 month interval followup maybe helpful if clinically indicated. Appendix not well visualized. Additional findings as above. These findings were preliminarily reported at 1:03 a.m. on 07/12/[address] Rasheed Booker from [facility].
== END 2018-07-12 01:34 | disposition home or self-care (01) ==
LOC: C.ER 21:21
DX: R10.9 Unspecified abdominal pain (principal); N83.202 Unspecified ovarian cyst, left side
CPT/HCPCS: 74177; 80053; 81001; 83690; 84703; 85025; 85610; 85730; 96361; 96374; 96375; 99284; J2270; J2405; J7030; Q9967

== ENCOUNTER 2018-10-10 15:55 | Emergency (ER) | payer MEDICAID ==
[2018-10-10 15:56] VITALS: BMI 27.4
--- NOTE | 2018-10-10 17:22 | RAD ---
HISTORY: productive cough COMPARISON: Chest x-ray performed 03/21/18, CTA chest performed 05/21/16 TECHNIQUE: Chest PA and lateral FINDINGS: LUNGS: No focal consolidation. Rounded 9 mm opacity seen anterior to the thoracic spine without significant interval change, possibly prominent vessel Please note that chest x-ray has limited sensitivity for the detection of pulmonary masses. PLEURA: No significant pleural effusion identified. No definite pneumothorax . CARDIOVASCULAR: The cardiomediastinal silhouette appears within normal limits of size. No atherosclerotic calcification present. OSSEOUS STRUCTURES: No acute osseous abnormality identified. VISUALIZED UPPER ABDOMEN: Unremarkable. OTHER FINDINGS: None. IMPRESSION: No acute findings. Rounded 9 mm opacity anterior to the thoracic spine, unclear significance and grossly stable; possibly prominent vessel on end.
[2018-10-10 18:02] LABS: ALB/GLOB RATIO 1.3 (1.0-2.1); ALBUMIN 4.1 g/dL (3.5-5.0); ALT/SGPT 28 U/L (9-52); AST/SGOT 26 U/L (14-36); BLOOD UREA NITROGEN 15 mg/dL (7-17); CALCIUM 9.1 mg/dl (8.6-10.4); GFR NON-AFRICAN AMERICAN > 60
[2018-10-10 18:04] LABS: PARTIAL THROMBOPLASTIN TIME 29 SECONDS (21-34); PROTHROMBIN TIME 10.8 SECONDS (9.7-12.2)
[2018-10-10 18:15] LABS: BASO # 0.1 K/uL (0.0-0.2); BASO % 0.6 % (0.0-2.0); EOS # 0.3 K/uL (0.0-0.7); EOS % 3.2 % (0.0-4.0); HEMOGLOBIN 12.6 g/dL (11.0-16.0); LYMPH # 2.4 K/uL (1.0-4.3); LYMPH % 25.4 % (20.0-40.0); MEAN CELL VOLUME 93.3 fL (81.0-99.0); MEAN CORPUSCULAR HEMOGLOBIN 32.6 pg (27.0-31.0); MEAN PLATELET VOLUME 8.7 fL (7.2-11.7); MONO # 0.5 K/uL (0.0-0.8); MONO % 5.4 % (0.0-10.0); NEUT # 6.2 K/uL (1.8-7.0); NEUT % 65.4 % (50.0-75.0); RBC 3.86 Mil/uL (3.80-5.20); RED CELL DISTRIBUTION WIDTH 12.7 % (11.5-14.5); WHITE BLOOD COUNT 9.5 K/uL (4.8-10.8)
[2018-10-10 18:42] LABS: D DIMER < 200 ng/mlDDU (0-243)
--- NOTE | 2018-10-10 19:06 | C.PDOC ---
History Of Present Illness 37 year old female presents to the ED for evaluation of fever and cough. Patient also reports left upper back pain that is worse with breathing and coughing. Patient presented afebrile and was ambulatory to triage. Patient denies tr auma/injuries, shortness of breath or chest pain. Time Seen by Provider: 10/10/18 16:08 Chief Complaint (Nursing): Cough, Cold, Congestion History Per: Patient History/Exam Limitations: no limitations Onset/Duration Of Symptoms: Days Current Symptoms Are (Timing): Still Present Additional History Per: Patient Past Medical History Reviewed: Historical Data, Nursing Documentation, Vital Signs Vital Signs: Last Vital Signs Temp 98.1 F 10/10/18 16:02 Pulse 75 10/10/18 16:02 Resp 18 10/10/18 16:02 BP 117/73 10/10/18 16:02 Pulse Ox 100 10/10/18 16:02 - Medical History PMH: Depression, Gastritis Denies: Chronic Kidney Disease Surgical History: Appendectomy, Endoscopy - [facility] Procedures OTHER AND UNSPECIFIED TOTAL ABDOMINAL HYSTERECTOMY (08/06/14) REMOV TUBE & ECTOP PREG (11/17/13) VACCINATION NEC (08/06/14) Family History: States: Unknown Family Hx - Social History Hx Tobacco Use: No Hx Alcohol Use: No Hx Substance Use: No - Immunization History Hx Tetanus Toxoid Vaccination: No Hx Influenza Vaccination: No Hx Pneumococcal Vaccination: No (2015) Review Of Systems Constitutional: Positive for: Fever Cardiovascular: Negative for: Chest Pain Respiratory: Positive for: Cough. Negative for: Shortness of Breath Musculoskeletal: Positive for: Back Pain (left, upper ) Physical Exam - Physical Exam Appears: Non-toxic, No Acute Distress Skin: Normal Color, Warm, Dry Head: Atraumatic, Normacephalic Eye(s): bilateral: Normal Inspection Ear(s): Bilateral: Normal Nose: Normal, No Discharge Oral Mucosa: Moist Throat: Normal, No Erythema, No Exudate Neck: Supple Chest: Symmetrical, No Deformity, No Tenderness Cardiovascular: Rhythm Regular, No Murmur Respiratory: Normal Breath Sounds, No Rales, No Rhonchi, No Wheezing Extremity: Normal ROM, Capillary Refill (less than 2 seconds ) Neurological/Psych: Oriented x3, Normal Speech, Normal Cognition, Normal Sensation ED Course And Treatment - Laboratory Results Result Diagrams: 10/10/18 17:44 10/10/18 17:44 O2 Sat by Pulse Oximetry: 100 (on RA) Pulse Ox Interpretation: Normal - Other Rad CXR X-Ray: Viewed By Me, Read By Radiologist Interpretation: HISTORY: productive cough. COMPARISON: Chest x-ray performed 03/21/18, CTA chest performed 05/21/16. TECHNIQUE: Chest PA and lateral. FINDINGS: LUNGS: No focal consolidation. Rounded 9 mm opacity seen anterior to the thoracic spine without significant interval change, possibly prominent vessel. Please note that chest x-ray has limited sensitivity for the detection of pulmonary masses. PLEURA: No significant pleural effusion identified. No definite pneumothorax . CARDIOVASCULAR: The cardiomediastinal silhouette appears within normal limits of size. No atherosclerotic calcification present. OSSEOUS STRUCTURES: No acute osseous abnormality identified. VISUALIZED UPPER ABDOMEN: Unremarkable. OTHER FINDINGS: None. IMPRESSION: No acute findings. Rounded 9 mm opacity anterior to the thoracic spine, unclear significance and grossly stable; possibly prominent vessel on end. Progress Note: Bloodwork, urinalysis, CXR ordered and reviewed. Zithromax PO given. Disposition - Disposition Referrals: Nathan Hernandez MD [Medical Doctor] - Disposition: HOME/ ROUTINE Disposition Time: 19:04 Condition: STABLE Additional Instructions: Follow up with your PMD within 1-2 days. Return to ED if feel worse. 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 - Scribe Statement The provider has reviewed the documentation as recorded by the Scribe (Malou Diego) All medical record entries made by the Scribe were at my direction and personally dictated by me. I have reviewed the chart and agree that the record accurately reflects my personal performance of the history, physical exam, medical decision making, and the department course for this patient. I have also personally directed, reviewed, and agree with the discharge instructions and disposition.
[2018-10-10 19:16] VITALS: BP 114/68; PULSE 76; RESP 20; TEMP 98.4
[2018-10-10 21:25] VITALS: O2SAT 100
== END 2018-10-10 19:34 | disposition home or self-care (01) ==
LOC: C.ER 15:55
DX: J40 Bronchitis, not specified as acute or chronic (principal)

== ENCOUNTER 2019-03-18 21:19 | Emergency (ER) | payer MEDICAID ==
[2019-03-18 21:19] VITALS: BMI 27.4
[2019-03-18 21:37] VITALS: BP 115/77; PULSE 66; RESP 20; TEMP 98.5; O2SAT 100
--- NOTE | 2019-03-18 23:18 | C.PDOC ---
History Of Present Illness 38 year old female presents to the ED for evaluation s/p slip and fall at work around 3 hours [employer]. Patient reports pain to her lumbosacral region, right hip, left knee and generalized body pain. Patient denies head injury, LOC, nausea, vomiting, extremity numbness/weakness. Time Seen by Provider: 03/18/19 21:35 Chief Complaint (Nursing): Back Pain History Per: Patient History/Exam Limitations: no limitations Onset/Duration Of Symptoms: Hrs (3) Current Symptoms Are (Timing): Still Present Quality Of Discomfort: "Pain" Additional History Per: Patient Past Medical History Reviewed: Historical Data, Nursing Documentation, Vital Signs Vital Signs: Last Vital Signs Temp 98.5 F 03/18/19 21:34 Pulse 66 03/18/19 21:34 Resp 20 03/18/19 21:34 BP 115/77 03/18/19 21:34 Pulse Ox 100 03/18/19 21:34 - Medical History PMH: Depression, Gastritis Denies: Chronic Kidney Disease Surgical History: Appendectomy, Endoscopy - [facility] Procedures OTHER AND UNSPECIFIED TOTAL ABDOMINAL HYSTERECTOMY (08/06/14) REMOV TUBE & ECTOP PREG (11/17/13) VACCINATION NEC (08/06/14) Family History: States: Unknown Family Hx - Social History Hx Tobacco Use: No Hx Alcohol Use: No Hx Substance Use: No - Immunization History Hx Tetanus Toxoid Vaccination: No Hx Influenza Vaccination: No Hx Pneumococcal Vaccination: No (2015) Review Of Systems Musculoskeletal: Positive for: Other (lumbosacral pain, right hip and left knee pain ) Neurological: Negative for: Other (head injury, LOC ) Physical Exam - Physical Exam Appears: Non-toxic, No Acute Distress Skin: Normal Color, Warm, Dry Head: Atraumatic, Normacephalic Eye(s): bilateral: Normal Inspection Oral Mucosa: Moist Neck: Supple Chest: Symmetrical, No Deformity, No Tenderness Cardiovascular: Rhythm Regular, No Murmur Respiratory: Normal Breath Sounds, No Rales, No Rhonchi, No Wheezing Extremity: Capillary Refill (less than 2 seconds), Other (lumbosacral pain, right hip, and left knee tenderness with palpation, no ecchymosis or edema ) Neurological/Psych: Oriented x3, Normal Speech, Normal Cognition, Normal Motor, Normal Sensation ED Course And Treatment O2 Sat by Pulse Oximetry: 100 (on RA) Pulse Ox Interpretation: Normal - Other Rad ls spine X-Ray: Viewed By Me, Read By Radiologist Interpretation: Creator : Lucrecia Walker. Dictator : Lucrecia Hilario. Chemical Plant Technical Director : Field Support Technician : Kathleen. Shivam Walker pprover2 : Report Date : 03/19/2019 08:18:28. My Comment : . Date of service: 03/18/2019. PROCEDURE: Radiographs of the Lumbar Spine. HISTORY: s/p fall. COMPARISON: No prior. TECHNIQUE: 5 views obtained. FINDINGS: BONES: Normal alignment. No listhesis. No fracture. Six non rib-bearing lumbar vertebrae are present. Transitional elements likely at the lumbosacral level are inferred. Trace endplate ridging of L3 and L4 noted. The lowest normal disc containing space is considered L5-S1 for purposes of this report this is likely a sacralized L5 segment. DISC SPACES: Unremarkable. OTHER FINDINGS: Moderate stool retention. Bladder moderately distended. Left hemipelvic 1 to 2 mm phleboliths. IMPRESSION: No fracture or subluxation. Other findings as above. hip xray X-Ray: Viewed By Me, Read By Radiologist Interpretation: Accession No. : [id number]. Patient Name / ID : DENNY ALVAREZ / [id number]. Exam Date : 03/18/2019 22:47:23 ( Approved ). Study Comment : Sex / Age : F / 38Y. Creator : Lucrecia Walker. Dictator : Lucrecia Walker. Chemical Plant Technical Director : Field Support Technician : Lucrecia Walker. Approver2 : Report Date : 03/19/2019 08:24:56. My Comment : . Date of service: 03/18/2019. PROCEDURE: HISTORY: s/p fall. COMPARISON: None. TECHNIQUE: AP pelvis and frog's leg view. FINDINGS: No fracture or dislocation. No lytic lesion. Sacroiliac and pubic symphyseal joints unremarkable. Bilateral hemipelvic phleboliths noted. Moderate bladder distention. Moderate stool retention. IMPRESSION: No fracture or lytic lesion. Other findings as above. Medical Decision Making Medical Decision Making: Progress: Flexeril PO and Toradol IM given. pain improved xray results discussed with patient stable for discharge Disposition Counseled Patient/Family Regarding: Studies Performed, Diagnosis, Need For Followup, Rx Given - Disposition Referrals: Nathan Hernandez MD [Medical Doctor] - Disposition: HOME/ ROUTINE Disposition Time: 23:21 Condition: IMPROVED Additional Instructions: Continue Naproxen twice a day Continue Flexeril up to three times a day as needed to relax muscles Rest, Ice, compression, and elevation Follow up with PMD in 1-2 days if pain persists Return to the ED if symptoms worsen Prescriptions: Cyclobenzaprine [Flexeril] 10 mg PO TID PRN #15 tab PRN Reason: Muscle Spasm Naproxen [Naprosyn] 500 mg PO BID #30 tablet Instructions: Low Back Pain (DC), Knee Pain (DC) Forms: [facility] (Thai), Work Excuse - Clinical Impression Clinical Impression: Lumbosacral pain, Left knee pain, Right hip pain - PA / RETIREMENT OFFICER / Resident Statement MD/DO has reviewed & agrees with the documentation as recorded. - Scribe Statement The provider has reviewed the documentation as recorded by the Scribe (dae Diego) All medical record entries made by the Scribe were at my direction and personally dictated by me. I have reviewed the chart and agree that the record accurately reflects my personal performance of the history, physical exam, medical decision making, and the department course for this patient. I have also personally directed, reviewed, and agree with the discharge instructions and disposition.
--- NOTE | 2019-03-19 08:22 | RAD ---
Date of service: 03/18/2019 PROCEDURE: Radiographs of the Lumbar Spine. HISTORY: s/p fall COMPARISON: No prior. TECHNIQUE: 5 views obtained. FINDINGS: BONES: Normal alignment. No listhesis. No fracture. Six non rib-bearing lumbar vertebrae are present. Transitional elements likely at the lumbosacral level are inferred. Trace endplate ridging of L3 and L4 noted. The lowest normal disc containing space is considered L5-S1 for purposes of this report this is likely a sacralized L5 segment. DISC SPACES: Unremarkable. OTHER FINDINGS: Moderate stool retention. Bladder moderately distended. Left hemipelvic 1 to 2 mm phleboliths. IMPRESSION: No fracture or subluxation. Other findings as above.
--- NOTE | 2019-03-19 08:28 | RAD ---
Date of service: 03/18/2019 PROCEDURE: HISTORY: s/p fall COMPARISON: None TECHNIQUE: AP pelvis and frog's leg view. FINDINGS: No fracture or dislocation. No lytic lesion. Sacroiliac and pubic symphyseal joints unremarkable. Bilateral hemipelvic phleboliths noted. Moderate bladder distention Moderate stool retention. IMPRESSION: No fracture or lytic lesion. Other findings as above.
== END 2019-03-18 23:30 | disposition home or self-care (01) ==
LOC: C.ER 21:19
DX: M54.5 Low back pain (principal); M25.551 Pain in right hip; M25.562 Pain in left knee
CPT/HCPCS: 72100; 73502; 96372; 99283; J1885